=== PATIENT | female | born 1970 | race Caucasian/White ===

== ENCOUNTER 2016-10-31 13:15 | Emergency (ER) | payer SELFPAY ==
[~2016-10-31] VITALS: Ht 165.1 cm; Wt 56.0 kg
[2016-10-31 13:16] VITALS: BP 144/68; PULSE 91; RESP 17; TEMP 98.6; O2SAT 97
[2016-10-31] MEDS ORDERED: CEPH-460 PO (14:20)
[2016-10-31] MEDS ORDERED: BACT800T5 PO (14:20)
[2016-10-31] MEDS ORDERED: IBUP800T23 PO (14:20)
--- NOTE | 2016-10-31 14:21 | PD ---
HPI Chief Complaint: Skin Problem Time Seen by Provider: 14:17 Travel History International Travel<30 days: No Contact w/Intl Traveler<30days: No Traveled to known affect area: No History of Present Illness HPI 26-year-old female presents to the emergency room with complaint of an ingrown hair to her left armpit that she tried popping it is worsened times one week. Denies fever, vomiting. Denies history of abscesses. Has tried popping men with no success. Has not taken any medications or tried any treatments to alleviate her symptoms. Has no other medical complaints. Symptoms are mild in severity. Allergies to codeine. No other modifying factors or associated signs and symptoms. PFSH Past Medical History Medical History: Denies Significant Hx ?: Not Past Surgical History Surgical History: No Previous Surgery Social History Alcohol Use: Yes (occ) Tobacco Use: Yes (pack and a 1/2 a day ) Substance Use: No Allergies-Medications (Allergen,Severity, Reaction): Coded Allergies: codeine (Verified Allergy, Severe, REDDENED, 10/31/16) Reported Meds & Prescriptions Reported Meds & Active Scripts Active Ibuprofen 800 Mg Tab 800 Mg PO Q6HR PRN Bactrim DS (Sulfamethoxazole-Trimethoprim) 800-160 Mg Tab 1 Tab PO BID 10 Days Keflex (Cephalexin) 500 Mg Cap 500 Mg PO Q6H 10 Days Review of Systems Except as stated in HPI: all other systems reviewed are Neg Physical Exam Narrative GENERAL: Well-nourished, well-developed female patient, in no acute distress; afebrile, nontoxic-appearing SKIN: There were multiple indurated areas to the left axilla which measures from about 0.5 cm to 1-1/2 cm cm in diameter. A few are fluctuant and without pointing and drainage; and multiple are small and hard without fluctuance, pointing or drainage. There is a zone of inflammation around it but no lymphangitis. HEAD: Atraumatic. Normocephalic. EYES: Pupils equal and round. No scleral icterus. No injection or drainage. ENT: Mucosa pink and moist. Airway patent. NECK: Trachea midline. CARDIOVASCULAR: Regular rate. RESPIRATORY: No accessory muscle use. GASTROINTESTINAL: Flat. MUSCULOSKELETAL: No obvious deformities. No clubbing. No cyanosis. No edema. NEUROLOGICAL: Awake and alert. Oriented 3. No obvious cranial nerve deficits. Motor grossly within normal limits. Normal speech. PSYCHIATRIC: Appropriate mood and affect; insight and judgment normal. Data Data Last Documented VS Vital Signs Date Time Temp Pulse Resp B/P (MAP) Pulse Ox O2 Delivery O2 Flow Rate FiO2 10/31/16 13:16 98.6 91 17 144/68 (93) 97 Orders Orders Wound Culture And Gram Stain (10/31/16 14:21) Lidocaine 1% Inj (50 Ml) (Xylocaine 1% I (10/31/16 14:30) MDM Medical Decision Making Medical Screen Exam Complete: Yes Emergency Medical Condition: Yes Medical Record Reviewed: Yes Differential Diagnosis Abscess, folliculitis, cellulitis Narrative Course 46-year-old female physical exam consistent with multiple abscesses of the left axilla. A few of them are fluctuant. See my procedure note for incision and drainage. Patient is afebrile and nontoxic appearing. Denies fever, vomiting. Wound culture pending. Ibuprofen, Keflex, Bactrim prescribed for home. Instructed patient to follow up with primary care provider. Patient verbalizes understanding and agreement with treatment plan. Patient is medically cleared and stable for discharge. Discussed reasons to return to the emergency department. Patient agrees with treatment plan. The patients vital signs are stable and the patient is stable for outpatient follow-up and treatment. Patient discharged home, stable and in no acute distress. Procedures Procedure Narrative INCISION AND DRAINAGE OF ABSCESS: The areas were prepped and was sterilely draped. A subcutaneous wheal of 1 % Xylocaine with a total number 1.5 mL was used to anesthetize the areas properly. A number 11 scalpel was used to make a less than 0.5 -cm incision across the areas of the abscesses. The abscesses were drained, complex loculations were broken down, and irrigated with normal saline. Cultures were obtained. Sterile dressing applied. Diagnosis Primary Impression: Abscess of left axilla Med/Other Pt SpecificInfo: Prescription(s) given Scripts Ibuprofen (Ibuprofen) 800 Mg Tab 800 MG PO Q6HR Y for PAIN, #30 TAB 0 Refills Prov: Deanna Brooks 10/31/16 Sulfamethoxazole-Trimethoprim (Bactrim DS) 800-160 Mg Tab 1 TAB PO BID for Infection for 10 Days, #20 TAB 0 Refills Prov: Deanna Brooks 10/31/16 Cephalexin (Keflex) 500 Mg Cap 500 MG PO Q6H for Infection for 10 Days, CAP 0 Refills Prov: Deanna Brooks 10/31/16 Disposition: 01 DISCHARGE HOME Condition: Stable Deanna Brooks Oct 31, 2016 14:21
[2016-10-31] MEDS ORDERED: LIDOCAINE HCL 1% 50 ML VIAL INFIL ONE (14:30)
== END 2016-10-31 15:21 | disposition home or self-care (01) ==
LOC: EDTENT 13:15
DX: L02.412 Cutaneous abscess of left axilla (principal); A49.02 Methicillin resistant Staphylococcus aureus infection, unspecified site; F17.200 Nicotine dependence, unspecified, uncomplicated; Z88.5 Allergy status to narcotic agent
CPT/HCPCS: 10061; 86403; 87070; 87186

== ENCOUNTER 2017-01-22 14:47 | Emergency (ER) | payer SELFPAY ==
[~2017-01-22 14:47] MED LIST: BACT800T5 PO; CEPH-460 PO; IBUP1TAB7 PO
[2017-01-22 14:48] VITALS: BP 119/62; PULSE 90; RESP 18; TEMP 98; O2SAT 97
--- NOTE | 2017-01-22 15:38 | RADRPT ---
EXAM DATE/TIME: 01/22/2017 15:22 [facility] COMPARISON: No previous studies available for comparison. INDICATIONS : Left thumb inflammation. Puncture wound at cuticle from palm frond. MEDICAL HISTORY : None. SURGICAL HISTORY : None. ENCOUNTER: Initial ACUITY: 4 - 6 days PAIN SCORE: 3/10 LOCATION: Left thumb FINDINGS: Examination of the first digit of the left hand demonstrates no evidence of fracture or dislocation. No radiopaque foreign bodies are seen. The soft tissues are intact. CONCLUSION: 1. Unremarkable radiographs without evidence for radiopaque foreign body, subcutaneous emphysema or b palak erosion. Tee Lai MD on January 22, 2017 at 15:35 Board Certified Radiologist. This report was verified electronically.
--- NOTE | 2017-01-22 15:39 | PD ---
HPI . Right thumb infection Chief Complaint: Skin Problem Time Seen by Provider: 15:09 Travel History International Travel<30 days: No Contact w/Intl Traveler<30days: No Traveled to known affect area: No History of Present Illness HPI 46-year-old female presents emergency department for evaluation of right thumb infection. Patient states 5 days ago she pricked her right thumb on a palm frawn. Patient is a pack-a-day smoker and smokes occasional marijuana. He denies any fever, chills, malaise. Patient denies any chest pain or shortness of breath although she has an incessant dry hacking cough for several months. Patient is unsure when she last had her tetanus vaccine. PFSH Past Medical History Respiratory: Yes (COPD) Social History Alcohol Use: Yes (occ) Tobacco Use: Yes (pack and a 1/2 a day ) Substance Use: No Allergies-Medications (Allergen,Severity, Reaction): Coded Allergies: codeine (Verified Allergy, Severe, REDDENED, 10/31/16) Reported Meds & Prescriptions Reported Meds & Active Scripts Active Keflex (Cephalexin) 500 Mg Cap 500 Mg PO Q6H 10 Days Bactrim DS (Sulfamethoxazole-Trimethoprim) 800-160 Mg Tab 1 Tab PO BID 10 Days Ibuprofen 800 Mg Tab 800 Mg PO Q6HR PRN Bactrim DS (Sulfamethoxazole-Trimethoprim) 800-160 Mg Tab 1 Tab PO BID 10 Days Keflex (Cephalexin) 500 Mg Cap 500 Mg PO Q6H 10 Days Review of Systems Except as stated in HPI: all other systems reviewed are Neg Physical Exam Narrative GENERAL: Well-nourished, well-developed 46-year-old female patient that appears older than stated age in no acute distress. Nontoxic appearing. SKIN: Right distal portion of the thumb erythematous and mildly edematous. No areas of fluctuation noted. HEAD: Normocephalic. Atraumatic. EYES: No scleral icterus. No injection or drainage. NECK: Supple, trachea midline. No JVD or lymphadenopathy. CARDIOVASCULAR: Regular rate and rhythm without murmurs, gallops, or rubs. RESPIRATORY: Breath sounds equal bilaterally. No accessory muscle use. GASTROINTESTINAL: Abdomen soft, non-tender, nondistended. MUSCULOSKELETAL: Right hand retains full range of motion. Right distal portion of thumb is erythematous and mildly edematous. The right thumb nail is intact. Data Data Last Documented VS Vital Signs Date Time Temp Pulse Resp B/P (MAP) Pulse Ox O2 Delivery O2 Flow Rate FiO2 01/22/17 14:48 98.0 90 18 119/62 (81) 97 Orders Orders Finger ([id number]) (01/22/17 15:12) Wound Care (01/22/17 15:12) Tetanus/Diphtheria Tox Adult (Tetanus/Di (01/22/17 16:00) Ed Discharge Order (01/22/17 15:52) MDM Medical Decision Making Medical Screen Exam Complete: Yes Emergency Medical Condition: Yes Differential Diagnosis Differential diagnoses include but not limited to cellulitis, abscess, infection , paronychia Narrative Course 46 year female presents emergency department for evaluation of right thumb infection that occurred after she pricked it on a palm frond 5 days ago. Patient retains full range of motion in right thumb. Distal portion of right thumb is erythematous and mildly edematous. X-ray of the right thumb ordered and pending. Tetanus updated at this time. Wound care performed to the right thumb. X-ray of the right thumb is unremarkable. Patient is discharged home with prescription for Bactrim and wound care instructions. Patient instructed to return the emergency department in 2 days for wound recheck. Patient instructed to turn sooner with worsening condition. Diagnosis Primary Impression: Cellulitis of thumb, right Referrals: Primary Care Physician Patient Instructions: Cellulitis (ED), General Instructions Additional Instructions: Please return to emergency department if your symptoms return or worsen. Follow up with your primary care provider. Take medications as prescribed. Daily dressing changes. Keep wound clean and dry. May take [id number] ibuprofen or Tylenol as needed for pain or fevers Med/Other Pt SpecificInfo: Prescription(s) given Scripts Cephalexin (Keflex) 500 Mg Cap 500 MG PO Q6H for Infection for 10 Days, #40 CAP 0 Refills Prov: Adalgisa Tineo 01/22/17 Sulfamethoxazole-Trimethoprim (Bactrim DS) 800-160 Mg Tab 1 TAB PO BID for Infection for 10 Days, #20 TAB 0 Refills Prov: Adalgisa Tineo 01/22/17 Disposition: 01 DISCHARGE HOME Condition: Stable Adalgisa Tineo Jan 22, 2017 15:39
[2017-01-22] MEDS ORDERED: CEPH-460 PO (15:47)
[2017-01-22] MEDS ORDERED: BACT800T5 PO (15:47)
[2017-01-22] MEDS ORDERED: TETANUS/DIPHTHERIA TOXOID ADULT 0.5 ML VIAL IM ONE (16:00)
== END 2017-01-22 16:49 | disposition home or self-care (01) ==
LOC: NEPK 14:47
DX: L03.113 Cellulitis of right upper limb (principal); J44.9 Chronic obstructive pulmonary disease, unspecified; F17.200 Nicotine dependence, unspecified, uncomplicated; Z88.5 Allergy status to narcotic agent; Z23 Encounter for immunization
CPT/HCPCS: 73140; 90471; 90714

== ENCOUNTER 2017-03-12 13:15 | Emergency (ER) | payer SELFPAY ==
[2017-03-12] MEDS: CLINDAMYCIN PHOS 600 MG/4 ML VIAL IM (15:26)
== END 2017-03-12 15:51 | disposition home or self-care (01) ==
LOC: NEPK 13:15
DX: L03.115 Cellulitis of right lower limb (principal); L01.00 Impetigo, unspecified; B95.62 Methicillin resistant Staphylococcus aureus infection as the cause of diseases classified elsewhere; B95.0 Streptococcus, group A, as the cause of diseases classified elsewhere; F17.200 Nicotine dependence, unspecified, uncomplicated
CPT/HCPCS: 73564; 86403; 87070; 87186; 87205; 96372; 99284-25